=== PATIENT | female | born 1965 ===

== ENCOUNTER 2021-12-29 10:22 | Day surgery (SDC) | payer OTHER ==
[~2021-12-29] VITALS: Ht 157.5 cm; Wt 74.8 kg
[~2021-12-29 10:22] MED LIST: GLIMEPIRIDE1 MG PO; JENTADUETO XR1 EAC1 PO; ZESTRIL2.5 MG PO
== END 2021-12-29 20:35 | disposition home or self-care (01) ==
LOC: CIR.AMB 10:22
PROVIDERS: ATTEND Colon & Rectal Surgery
DX: K60.0 Acute anal fissure (principal); Z88.8 Allergy status to other drugs, medicaments and biological substances; Z20.822 Contact with and (suspected) exposure to COVID-19; I10 Essential (primary) hypertension; E11.9 Type 2 diabetes mellitus without complications